=== PATIENT | female | born 1970 | race Caucasian/White ===

== ENCOUNTER → 2017-03-04 | Outpatient (CLI) | payer BC ==
[~2017-03-04] MED LIST: CHOL1000 PO; LISI-725 PO; MULT-506 PO; OXYC-57 PO; TOCI20IN SQ; TUMS PO
--- NOTE | 2017-03-04 18:20 | DIAGNOSTIC IMAGING REPORT ---
LATERAL RADIOGRAPHS OF THE CERVICAL SPINE IN THE NEUTRAL, FLEXION AND EXTENSION POSITIONS CLINICAL HISTORY: Preoperative evaluation. Rheumatoid arthritis. COMPARISON STUDY: No previous studies for comparison. FINDINGS: There is no evidence of instability at the atlantoaxial articulation during flexion or extension. There is straightening of the normal cervical lordosis. Mild multilevel degenerative changes are present. There is no fracture. C7 is partially obscured. IMPRESSION: 1. No radiographic evidence of atlantoaxial instability. 2. Minimal multilevel degenerative changes of the cervical spine. Electronically signed by: Amos Padilla M.D. 03/04/2017 6:18 PM Dictated Date/Time: 03/04/2017 6:17 PM
== END | disposition home or self-care (01) ==
LOC: C.RAD 17:40
PROVIDERS: ATTEND Physician Assistant Medical
DX: Z01.812 Encounter for preprocedural laboratory examination (principal); Z01.810 Encounter for preprocedural cardiovascular examination; E21.3 Hyperparathyroidism, unspecified; M06.9 Rheumatoid arthritis, unspecified; M47.812 Spondylosis without myelopathy or radiculopathy, cervical region

== ENCOUNTER 2017-03-10 05:12 | Inpatient (IN) | payer BC ==
[2017-02-27 10:25] VITALS: BMI 43.0
[~2017-03-10] VITALS: Ht 154.9 cm; Wt 102.3 kg
[2017-03-10] VITALS (10 sets, daily range): BP systolic 124–144; BP diastolic 83–87; PULSE 87–115; TEMP 36.8–37.6; O2SAT 95–100; Ht 154.9 cm; Wt 102.3 kg
[~2017-03-10 05:12] MED LIST changes: -OXYC-57 PO; -TUMS PO
[2017-03-10] MEDS ORDERED: LACTATED RINGER'S 1000ML IV SCH (06:00)
--- NOTE | 2017-03-10 06:55 | History and Physical ---
History & Physical Date March 10, 2017. Chief Complaint hyperparathyroidism History of Present Illness The patient is a 46 year old female with complaints of hyperparathyroidism. CT/ mibi fusion shows likely right inferior adenoma. Additional History Hepatic Disease: No Endocrine Disorder: No Kidney Disease: No Hypertension: No Heart Disease: No Bleeding Tendencies: No Infectious Diseases: No Allergies Coded Allergies: No Known Allergies (Unverified , 03/10/17) Home Medications Scheduled Cholecalciferol (Vitamin D3), 1 TAB PO QAM Lisinopril (Zestril), 20 MG PO QAM Multivitamin (Multivitamin), 1 TAB PO QAM Tocilizumab (Actemra), 1 DOSE SQ SAT Physical Examination Skin: warm/dry, no rash Eyes: normal inspection, EOMI, sclerae normal ENT: normal ENT inspection, pharynx normal Head: normocephalic, atraumatic Neck: supple, no adenopathy, trachea midline Respiratory/Chest: lungs clear, normal breath sounds, no respiratory distress Cardiovascular: regular rate, rhythm, no edema, no murmur Diagnosis 46 yo female with hyperparathyroidism Plan of Treatment proceed with parathyroid exploration. scds
[2017-03-10] MEDS ORDERED: LIDOCAINE/EPINEPHRINE 1% 20 ML VIAL ONE (06:59)
[2017-03-10] MEDS ORDERED: MIDAZOLAM HCL 1 MG/ML 2ML VIAL ONE (07:05)
[2017-03-10] MEDS ORDERED: FENTANYL CITRATE INJ 50 MCG/1 ML 2 ML VIAL ONE (07:05)
[2017-03-10] MEDS ORDERED: SODIUM CHLORIDE 0.9% 1000ML 1,000 ML IV SCH (07:07)
[2017-03-10] MEDS ORDERED: OXYC-57 PO (07:12)
[2017-03-10] MEDS ORDERED: MoRPHine SULFATE 2 MG/ML CARP IV PRN (07:15)
[2017-03-10] MEDS ORDERED: OXYCODONE/ACETAMINOPHEN 5-325 TAB PO PRN ×2 (07:15)
[2017-03-10] MEDS ORDERED: ONDANSETRON INJ 2 MG/ML 2 ML VIAL IV PRN ×2 (07:15→08:45)
--- NOTE | 2017-03-10 07:16 | Discharge Instructions ---
Discharge Instructions Date of Service March 10, 2017. Admission Reason for Admission: Hyperparathyroidism Discharge Discharge Diagnosis / Problem: hyperparatyhyroidism Discharge Goals Goal(s): Improve function Activity Recommendations Activity Limitations: as noted below Lifting Limitations: no more than 5 pounds Exercise/Sports Limitations: until after follow-up appointment May Resume Sexual Activity: after follow-up appointment Shower/Bathe: keep incision dry Driving or Machine Use: resume after first follow up No driving for one week No heavy lifting for 2 weeks . Instructions / Follow-Up Instructions / Follow-Up Keep incision dry No heavy lifting for 2 weeks Call for any numbness or tingling around the lips or fingertips that does not resolve with 10 minutes of rest as this may be a sign of early low calcium Call for any spreading swelling or redness of the incision To shower, place a washcloth over the incision and then wrap neck in saran wrap to keep dry No strenuous activity for 2 weeks Current Hospital Diet Patient's current hospital diet: Discharge Diet Recommended Diet: Regular Diet Fluid Restriction: None Procedures Procedures Performed: parathyroid exploration Pending Studies Studies pending at discharge: no Medical Emergencies . Who to Call and When: Medical Emergencies: If at any time you feel your situation is an emergency, please call 911 immediately. . Non-Emergent Contact Non-Emergency issues call your: Specialist Contact Number: [phone] . . "Provider Documentation" section prepared by Qasim Jean-Baptiste. . VTE Core Measure Inpt VTE Proph given/why not?: Treatment not indicated [place] Drug Monitoring Program Search Results: patient reviewed within database, no issues identified
[2017-03-10] MEDS ORDERED: SUCCINYLCHOLINE CHLORIDE 20 MG/ML 10 ML VIAL IV ONE (07:33)
[2017-03-10] MEDS ORDERED: PROPOFOL IV EMULSION 10 MG/ML 20 ML VIAL IV ONE ×2 (07:33→07:59)
[2017-03-10] MEDS ORDERED: DiphenhydrAMINE HCL 50 MG/ML VIAL ONE (07:33)
[2017-03-10] MEDS ORDERED: DEXAMETHASONE SOD INJ 4 MG/ML VIAL ONE (07:33)
[2017-03-10] MEDS ORDERED: HYDROmorphone INJ 2 MG/ML SYR/VIAL ONE (07:33)
[2017-03-10] MEDS ORDERED: ONDANSETRON INJ 2 MG/ML 2 ML VIAL ONE ×3 (07:33→07:59)
[2017-03-10] MEDS ORDERED: EpHEDrine SULFATE 50MG/5ML SYR ONE (07:54)
[2017-03-10] MEDS ORDERED: PHENYLEPHRINE 100MCG/ML 5ML SYR ONE (07:54)
[2017-03-10] MEDS ORDERED: ARISTA ABSORBABLE HEMOSTAT 3GM TOP ONE (08:29)
[2017-03-10] MEDS ORDERED: FENTANYL CITRATE INJ 50 MCG/1 ML 2 ML VIAL IV PRN (08:45)
[2017-03-10] MEDS ORDERED: ATROPINE SULFATE 0.1 MG/ML 5ML SYR IV PRN (08:45)
[2017-03-10] MEDS ORDERED: EpHEDrine SULFATE INJ 50 MG/ML AMP IV PRN (08:45)
[2017-03-10] MEDS ORDERED: LABETALOL HCL IV 5 MG/ML 20ML IV PRN (08:45)
[2017-03-10] MEDS ORDERED: MEPERIDINE HCL 25 MG/ML CARP IV PRN (08:45)
[2017-03-10] MEDS ORDERED: HYDROmorphone INJ 1 MG/ML SYR IV PRN (08:45)
--- NOTE | 2017-03-10 09:30 | [facility] Post Operative Brief Note ---
Immediate Operative Summary Operative Date March 10, 2017. Pre-Operative Diagnosis Hyperparathyroidism Post-Operative Diagnosis Hyperparathyroidism right inferior adenoma Procedure(s) Performed Parathyroid exploration Surgeon Dr Qasim Jean-Baptiste Souvenir Assembler Surgeon(s) Petrona Flaherty PA-C, Ligia Rey PA-C Estimated Blood Loss 5ml Findings large right inferior adenoma Specimens Frozen #1: Right inferior parathyroid ademona Drains none Anesthesia GETA Complication(s) None Disposition Recovery Room / PACU
[2017-03-10] MEDS ORDERED: TUMS PO (09:41)
--- NOTE | 2017-03-10 10:19 | OPERATIVE REPORT ---
DATE OF OPERATION: 03/10/2017 SERVICE: Otolaryngology, Head and Neck Surgery. SURGEON: Qasim Jean-Baptiste DO ASSISTANTS: Petroan Flaherty PA-C and Ligia Rey PA-C. PREOPERATIVE DIAGNOSIS: Primary hyperparathyroidism. POSTOPERATIVE DIAGNOSES: Same plus right inferior adenoma. COMPLICATIONS: None. DRAINS: None. ESTIMATED BLOOD LOSS: 5 mL. INTRAVENOUS FLUIDS: 1300 mL. URINE OUTPUT: 0 mL. SPECIMENS: Right inferior parathyroid sent for frozen section which was consistent with a hypercellular parathyroid adenoma at 0.79 grams. FINDINGS: See body of operative report. INDICATIONS AND HISTORY: This is a 46-year-old female who presented to my office with elevated calcium and PTH at the referral of her family doctor. This was found on routine blood work. Workup with an imaging study revealed a suspicious area inferior to the right lobe of the thyroid. CT scan with fusion with the sestamibi was very suspicious for right inferior adenoma. I discussed the options with the patient including observation versus consideration of parathyroid exploration. She wanted to proceed with exploration. I discussed the risks including bleeding, infection, recurrent laryngeal nerve injury, hypoparathyroidism, excessive scarring. She expressed her understanding and signed informed consent. DESCRIPTION OF THE OPERATION: The patient was brought to the operating room, identified, procedure verified. She underwent general endotracheal anesthesia with the nerve integrity monitoring tube. Using the GlideScope, proper placement was confirmed. SCDs were in place and noted to be good working order prior to the start of the case. An incision was delineated with a marking pen in a low Corinne fashion, injected with 1% lidocaine 1:100,000 of epinephrine. After allowing time for local to take effect, incision was carried down with the 15 blade through skin and subcutaneous tissue down to the level of platysma. Superior and inferior subplatysmal flaps were then raised. The midline raphae was identified and divided and attention was directed to the right side of the neck. The strap muscles were skeletonized and retracted laterally. They were not cut. At this point, attention was directed to the lateral aspect of the thyroid lobe which was skeletonized from about the mid pole inferior. At this point, retraction of the gland, exposing the visceral vertebral angle was performed and blunt dissection with hemostats as well as a Kitner was performed and an obvious parathyroid adenoma was noted in the visceral vertebral angle just inferior to the right lower pole of the thyroid. It was dissected out and skeletonized meticulously. Once the adenoma was in plain view, the fascial attachments were taken down with the harmonic zane as well as the bipolar cautery. The large parathyroid gland was removed, it was sent for frozen section analysis. This was not consistent with a hypercellular parathyroid gland at 0.795 grams. Of note, a preoperative PTH was drawn prior to the incision. This level was 181. A 15 and 20 minute post-excision lab was then drawn and the 15 minute post-excision was 15. At this point, the neck was irrigated liberally, hemostasis was assured, and several Valsalva maneuvers were performed to confirm hemostasis. Once this was done, the incision was closed in the usual fashion. Leslye hemostatic powder was placed into the visceral vertebral angle and on top of the operative site. Incision was closed with 3-0 Vicryls for the deep layer, 3-0 Vicryl for the platysmal layer, interrupted 4-0 Vicryls for the subdermal layer. At this point, a running barbed suture was used to close the subcuticular layer and the skin was closed with Dermabond. A Steri-Strip was applied. The patient was returned to anesthesia. She was awakened, extubated and taken to recovery unit in stable condition. I attest to the content of the Intraoperative Record and any orders documented therein. Any exceptions are noted below. BOOGIED
--- NOTE | 2017-03-10 11:23 | Anesthesiology Progress Note ---
Anesthesia Post Op Note Date & Time March 10, 2017 at 11:22 Vital Signs Pain Intensity: 0 Vital Signs Past 12 Hours Date Time Temp Pulse Resp B/P Pulse Ox O2 Delivery O2 Flow Rate FiO2 03/10/17 11:02 104 20 137/85 99 Nasal Cannula 2.0 03/10/17 10:33 37.1 115 16 141/87 95 Nasal Cannula 2.0 03/10/17 10:20 103 22 118/74 99 Nasal Cannula 2 03/10/17 10:05 37.2 103 22 126/72 99 Nasal Cannula 2 03/10/17 09:57 37.2 103 22 129/71 100 Nasal Cannula 2 03/10/17 09:53 103 18 99 03/10/17 09:53 103 18 03/10/17 09:50 123/84 03/10/17 09:48 109 18 100 03/10/17 09:48 109 18 03/10/17 09:47 37.2 105 20 129/71 100 Nasal Cannula 2 03/10/17 09:47 37.2 103 22 114/77 99 Nasal Cannula 2 03/10/17 09:45 125/61 03/10/17 09:43 108 17 110/71 100 03/10/17 09:43 108 17 03/10/17 09:38 107 17 100 03/10/17 09:38 105 17 03/10/17 09:35 137/70 03/10/17 09:33 102 18 03/10/17 09:33 102 18 100 03/10/17 09:32 100 19 03/10/17 09:32 101 19 100 03/10/17 09:30 144/82 03/10/17 09:27 103 16 03/10/17 09:27 104 16 100 03/10/17 09:25 147/86 03/10/17 09:22 36.5 105 16 135/82 100 Mask 10 03/10/17 09:22 108 20 135/82 100 03/10/17 09:22 108 20 03/10/17 05:42 37.6 112 18 144/85 100 Room Air Notes Mental Status: alert / awake / arousable, participated in evaluation Pt Amnestic to Procedure: Yes Nausea / Vomiting: adequately controlled Pain: adequately controlled Airway Patency, RR, SpO2: stable & adequate BP & HR: stable & adequate Hydration State: stable & adequate Anesthetic Complications: no major complications apparent
[2017-03-10] MEDS: CALCIUM CARBONATE 500 MG CHEWABLE PO SCH ×2 (14:37→21:00)
[2017-03-10] MEDS ORDERED: NURSING VERBAL MED ORDER ONE (16:30)
[2017-03-10] MEDS ORDERED: NURSING DECISION MEDICATION ORDER SCH (18:15)
[2017-03-10] MEDS ORDERED: COUGH DROP (SUGAR FREE) LOZ 24 LOZ/1 BOX ONE (18:40)
[2017-03-10] MEDS ORDERED: COUGH DROP (SUGAR FREE) LOZ 24 LOZ/1 BOX PO PRN (18:45)
--- NOTE | 2017-03-11 06:15 | Discharge Summary ---
Discharge Summary Date of Service March 11, 2017. Discharge Summary Admission Date: March 10, 2017 at 07:10 Discharge Date: March 11, 2017 Discharge Disposition: Home Primary Diagnosis: Hyperparathyroidism Procedures: Parathyroid exploration Pending Studies/Follow-Up: Patient with follow up with Dr. Qasim Jean-Baptiste at [facility] on Friday as scheduled. Discharge Instructions Last Recorded Wt (Kilograms): 102.270 Activity Recommendations: shower/bathe limit (Keep incision clean and dry. Place dry wash cloth over incision and wrap neck with saran wrap when showering. ), limitations (No strenuous activity for two weeks. No lifting greater than 5 lbs for two weeks.) Allergies: Coded Allergies: No Known Allergies (Unverified , 03/10/17) Home Health Services: none Special Care: Call your doctor if: * Temperature above 101 degrees * Pain not relieved by pain medicine ordered * There is increased drainage or redness from any incision * You have any unanswered questions or concerns. Avoid all tobacco products. If you need help to stop smoking, call [facility] FREE QUITLINE at . This is a free call. Hospital Course Patient presented on 03/10/17 for parathyroid exploration with Dr. Qasim Jean-Baptiste for hyperparathyroidism due to a possible parathyroid adenoma. The patient was found to have a right inferior parathyroid adenoma and PTH levels dropped from 181.7 pre-operatively to 15.9 15 mins post excison and 14.1 20 mins post excision. Her calcium was noted to be WNL. The patient did have some hoarseness but reported she is able to phonate without difficulty. The patient was admitted for observation. She reported today that her pain is well controlled and her hoarseness has improved. She denied difficulty speaking, dysphagia, paraesthesias, numbness. The incision was clean and dry with the steri-strip intact. There was no ecchymosis, erythema, or discharge noted. The patient was slightly hoarse but this has improved greatly since yesterday. The patient was directed on post-operative incision care and limitations and will follow up with Dr. Qasim Jean-Baptiste on 03/17/17 at [facility]. Total time spent on discharge = This includes examination of the patient, discharge planning, medication reconciliation, and communication with other providers.
[2017-03-11 07:15] VITALS: BP 124/84; PULSE 91; TEMP 37.4; O2SAT 98
--- NOTE | 2017-03-11 08:27 | Anesthesiology Progress Note ---
Anesthesia Post Op Note Date & Time March 11, 2017 at 08:26 Vital Signs Pain Intensity: 0.0 Vital Signs Past 12 Hours Date Time Temp Pulse Resp B/P Pulse Ox O2 Delivery O2 Flow Rate FiO2 03/11/17 07:18 Room Air 03/11/17 07:15 37.4 91 16 124/84 98 Room Air 03/10/17 23:25 36.8 87 16 127/85 96 Room Air Notes Mental Status: alert / awake / arousable, participated in evaluation Pt Amnestic to Procedure: Yes Nausea / Vomiting: adequately controlled Pain: adequately controlled Airway Patency, RR, SpO2: stable & adequate BP & HR: stable & adequate Hydration State: stable & adequate Anesthetic Complications: no major complications apparent
[2017-03-11] MEDS: CALCIUM CARBONATE 500 MG CHEWABLE PO SCH (08:58)
[2017-03-11] MEDS ORDERED: CHOLECALCIFEROL 1000 INTER.UNIT TAB PO SCH (09:00)
[2017-03-11] MEDS ORDERED: MULTIVITAMIN TAB PO SCH (09:00)
[2017-03-11] MEDS ORDERED: LISINOPRIL 20 MG TAB PO SCH (09:00)
[2017-03-11 09:10] VITALS: BP 124/84; PULSE 91; TEMP 37.4; O2SAT 98
== END 2017-03-11 09:24 | disposition home or self-care (01) | DRG 626 ==
LOC: ENRESERV → ENRESERVDT → ENRESERVTM → C.ACU 05:12 → C.MSW 07:10
PROVIDERS: ADMIT Otolaryngology; ATTEND Otolaryngology
PROC: 0GBN0ZZ Excision of Right Inferior Parathyroid Gland, Open Approach (ICD-10-PCS; principal; 2017-03-10 07:15)
DX: D35.1 Benign neoplasm of parathyroid gland (principal); Z68.41 Body mass index [BMI] 40.0-44.9, adult; E21.3 Hyperparathyroidism, unspecified; R49.0 Dysphonia; I10 Essential (primary) hypertension; K21.9 Gastro-esophageal reflux disease without esophagitis; M19.90 Unspecified osteoarthritis, unspecified site; M06.9 Rheumatoid arthritis, unspecified; D72.819 Decreased white blood cell count, unspecified; E66.01 Morbid (severe) obesity due to excess calories; Z79.899 Other long term (current) drug therapy